=== PATIENT | male | born 2005 | race Caucasian/White ===

== ENCOUNTER 2025-05-01 20:21 | Emergency (ER) | payer SELFPAY ==
[~2025-05-01] VITALS: Ht 185.4 cm; Wt 147.4 kg
[2025-05-01] MEDS ORDERED: PANTOPRAZOLE 40 MG VIAL ONE (21:04)
[2025-05-01] MEDS ORDERED: KETOROLAC TROMETHAMINE 15 MG/ML VIAL ONE (21:04)
[2025-05-01] MEDS ORDERED: FAMOTIDINE/PF INJ 20 MG/2 ML VIAL IV ONE (21:04)
[2025-05-01] MEDS ORDERED: METOCLOPRAMIDE HCL 10 MG/2 ML VIAL ONE (21:04)
[2025-05-01 21:15] LABS: PLATELET COUNT (AUTO) 219 K/uL (150-450); RED BLOOD CELL COUNT(AUTO) 5.61 MIL/uL (4.5-6.0); RED CELL DISTRIBUTION WIDTH 13.8 % (11.5-15.0); WHITE BLOOD COUNT (AUTO) 12.0 K/uL (4.3-11.0)
[2025-05-01] MEDS: FAMOTIDINE/PF INJ 20 MG/2 ML VIAL IV ONE (21:22)
[2025-05-01] MEDS: METOCLOPRAMIDE HCL 10 MG/2 ML VIAL IV ONE (21:22)
[2025-05-01] MEDS: IV NS 0.9% 1,000 ML BAG IV ONE (21:22)
[2025-05-01] MEDS: KETOROLAC TROMETHAMINE 15 MG/ML VIAL IV ONE (21:26)
[2025-05-01] MEDS: PANTOPRAZOLE 40 MG VIAL IV ONE (21:26)
[2025-05-01 21:31] LABS: ASPARTATE AMINOTRANSFERASE 18.0 U/L (15-37); CALCIUM, SERUM 9.5 mg/dL (8.5-10.1); CREATININE 0.8 mg/dL (0.6-1.3); SODIUM SERUM 138.0 mmol/L (136-145); TOTAL PROTEIN, SERUM 8.3 g/dL (6.4-8.2); UREA NITROGEN, BLOOD 14.0 mg/dL (7-18)
[2025-05-01] MEDS ORDERED: FAMO-131 PO (21:33)
[2025-05-01] MEDS ORDERED: METO-295 PO (21:33)
[2025-05-01] MEDS ORDERED: PANT40TA49 PO (21:33)
[2025-05-01 22:58] VITALS: BP 135/89; TEMP 98; O2SAT 95
== END 2025-05-01 22:59 | disposition home or self-care (01) ==
LOC: ER 20:38
DX: R11.2 Nausea with vomiting, unspecified (principal); R10.13 Epigastric pain; Z79.899 Other long term (current) drug therapy
CPT/HCPCS: 99284; 96374; 96375; 96361; 85025; 80048; 83690; 80076; 36415; J1885; J1200; J1308; J2765; J7060; J7030; J2470